=== PATIENT | female | born 1970 | race Hispanic/Latino ===

== ENCOUNTER 2020-12-18 19:05 | Inpatient (IN) | payer SELFPAY ==
[~2020-12-18 19:05] MED LIST: Iopamidol-370 76% 500 ML 1 ML ONE
[2020-12-18] MEDS ORDERED: Acetaminophen 500 MG TAB ONE (19:23)
[2020-12-18 20:03] LABS: Hemoglobin 13.7 g/dL (12.0-16.0); Mean Corpuscular HGB CONC 33.8 g/dL (32.0-36.0); Mean Corpuscular Hemoglobin 28.2 pg (27.0-31.0); Mean Corpuscular Volume 83.4 fL (78.0-98.0); RBC Distribution Width 13.5 % (11.5-14.5); Red Blood Cell (RBC) Count 4.85 mill/uL (4.20-5.40); White Blood Cell (WBC) Count 5.1 thou/uL (4.8-10.8)
[2020-12-18 20:22] LABS: ALT (SGPT) 44 U/L (8-55); AST (SGOT) 67 U/L (5-34); Albumin 4.1 g/dL (3.5-5.0); Alkaline Phosphatase 108 U/L (40-110); Anion Gap 17 mmol/L (10-20); BUN (Urea Nitrogen) 10 mg/dL (7.0-18.7); Bilirubin, Total 0.8 mg/dL (0.2-1.2); CK (CPK) 121 U/L (29-168); Calc. Creatinine Clearance 0 mL/min (70-130); Calcium 8.2 mg/dL (7.8-10.44); Carbon Dioxide 22 mmol/L (22-29); Chloride 102 mmol/L (98-107); Globulin 3.8 g/dL (2.4-3.5); Glucose 114 mg/dL (70-105); Potassium 4.2 mmol/L (3.5-5.1); Protein, Total 7.9 g/dL (6.0-8.3); Sodium 137 mmol/L (136-145)
[2020-12-18 20:23] LABS: Band 39 % (5-11); Lymphocytes 23 % (21-51); MDiff Complete? YES; Mean Platelet Volume 7.9 fL (7.4-10.4); Monocytes 4 % (0-10); Neutrophil 30 % (42-75); Platelet Count 211 thou/uL (130-400); Platelet Morphology Comment Appears Adequate; RBC Morphology Normal; Reactive Lymphocytes 4 % (0-10)
[2020-12-18] MEDS ORDERED: Dexamethasone 10 MG/ML VIAL ONE (21:03)
[2020-12-18] MEDS ORDERED: Azithromycin 500 MG VIAL ONE (21:03)
[2020-12-18] MEDS ORDERED: Aspirin Chewable 81 MG TAB ONE (21:03)
[2020-12-18] MEDS ORDERED: cefTRIAXone\\ROCEPHIN 1 GM VIAL ONE (21:03)
[2020-12-18] MEDS ORDERED: Enoxaparin Sodium 100 MG/ML SYRINGE ONE (21:03)
[2020-12-18 22:06] LABS: SARS-CoV-2 NAA Rapid Test DETECTED (NotDetected)
[2020-12-18] MEDS ORDERED: Ondansetron ODT 4 MG TAB SL PRN (23:30)
[2020-12-18] MEDS ORDERED: Ondansetron PF 4 MG/2 ML Vial IVP PRN (23:30)
[2020-12-18] MEDS ORDERED: Sodium Chloride 0.9% 1,000 ML IV SCH (23:30)
[2020-12-18 23:39] VITALS: BMI 35.3
[2020-12-19] MEDS: Cholecalciferol (Vitamin D3) 400 UNITS TAB PO SCH (08:29)
[2020-12-19] MEDS: Zinc Sulfate 220 MG CAP PO SCH (08:29)
[2020-12-19] MEDS: Ascorbic Acid 500 mg Chewable Tablet PO SCH (08:29)
[2020-12-19] MEDS ORDERED: Dexamethasone 4 mg/ml Vial SLOW IVP SCH ×3 (09:00→10:00)
[2020-12-19] MEDS ORDERED: Aspirin 325 MG TAB PO SCH (09:00)
[2020-12-19] MEDS: Sodium Chloride 0.9% 1,000 ML IV SCH (10:52)
[2020-12-19] MEDS: Guaifenesin DM 100-10/5 ML UDCUP PO PRN ×3 (11:18→20:10)
[2020-12-19] MEDS: cefTRIAXone\\ROCEPHIN 1 GM in Sodium Chloride 0.9% 100 ML IVPB SCH (20:09)
[2020-12-19] MEDS: Azithromycin 500 MG in Sodium Chloride 0.9% 250 ML 250 ML IVPB SCH (21:50)
[2020-12-20] MEDS: Guaifenesin DM 100-10/5 ML UDCUP PO PRN ×3 (00:17→20:52)
[2020-12-20] MEDS: Acetaminophen 325 MG TAB PO PRN ×2 (00:18→08:27)
[2020-12-20] MEDS: Sodium Chloride 0.9% 1,000 ML IV SCH (00:18)
[2020-12-20 06:08] LABS: #Lymphocytes 1.9 thou/uL (1.20-3.40); #Monocytes 0.4 thou/uL (0.11-0.59); #Neutrophils 8.2 thou/uL (1.40-6.50); %Basophils 0.3 % (0.0-1.0); %Eosinophils 0.1 % (0.0-10.0); %Lymphocytes 17.5 % (21.0-51.0); %Monocytes 3.8 % (0.0-10.0); %Neutrophils 78.3 % (42.0-75.0); Hemoglobin 11.8 g/dL (12.0-16.0); Mean Corpuscular HGB CONC 32.7 g/dL (32.0-36.0); Mean Corpuscular Hemoglobin 27.5 pg (27.0-31.0); Mean Corpuscular Volume 84.1 fL (78.0-98.0); Platelet Count 296 thou/uL (130-400); RBC Distribution Width 13.3 % (11.5-14.5); White Blood Cell (WBC) Count 10.5 thou/uL (4.8-10.8)
[2020-12-20 07:43] LABS: Anion Gap 14 mmol/L (10-20); BUN (Urea Nitrogen) 10 mg/dL (7.0-18.7); Calc. Creatinine Clearance 162 mL/min (70-130); Calcium 8.1 mg/dL (7.8-10.44); Carbon Dioxide 18 mmol/L (22-29); Chloride 109 mmol/L (98-107); Glucose 109 mg/dL (70-105); Potassium 3.9 mmol/L (3.5-5.1); Sodium 137 mmol/L (136-145)
[2020-12-20] MEDS: Ascorbic Acid 500 mg Chewable Tablet PO SCH (08:27)
[2020-12-20] MEDS: Zinc Sulfate 220 MG CAP PO SCH (08:27)
[2020-12-20] MEDS: Cholecalciferol (Vitamin D3) 400 UNITS TAB PO SCH (08:27)
[2020-12-20] MEDS: Dexamethasone 4 mg/ml Vial SLOW IVP SCH (08:27)
[2020-12-20] MEDS ORDERED: Ibuprofen 800 MG TAB PO PRN (09:21)
[2020-12-20] MEDS ORDERED: REMDESIVIR (EUA) 200 MG in Sodium Chloride 0.9% 250 ML 210 ML IV SCH (11:00)
[2020-12-20] MEDS: Azithromycin 500 MG in Sodium Chloride 0.9% 250 ML 250 ML IVPB SCH (20:36)
[2020-12-20] MEDS: Enoxaparin Sodium 40 MG/0.4 ML SYRINGE SC SCH (20:37)
[2020-12-20] MEDS: cefTRIAXone\\ROCEPHIN 1 GM in Sodium Chloride 0.9% 100 ML IVPB SCH (23:00)
[2020-12-21] MEDS: Acetaminophen 325 MG TAB PO PRN (01:13)
[2020-12-21] MEDS: Guaifenesin DM 100-10/5 ML UDCUP PO PRN (04:36)
[2020-12-21 07:12] LABS: #Lymphocytes 1.6 thou/uL (1.20-3.40); #Monocytes 0.3 thou/uL (0.11-0.59); #Neutrophils 5.4 thou/uL (1.40-6.50); %Basophils 0.3 % (0.0-1.0); %Lymphocytes 22.2 % (21.0-51.0); %Monocytes 4.4 % (0.0-10.0); %Neutrophils 73.1 % (42.0-75.0); Hemoglobin 11.4 g/dL (12.0-16.0); Mean Corpuscular Hemoglobin 27.8 pg (27.0-31.0); Mean Corpuscular Volume 84.4 fL (78.0-98.0); Mean Platelet Volume 7.1 fL (7.4-10.4); Platelet Count 277 thou/uL (130-400); RBC Distribution Width 13.4 % (11.5-14.5); Red Blood Cell (RBC) Count 4.11 mill/uL (4.20-5.40); White Blood Cell (WBC) Count 7.4 thou/uL (4.8-10.8)
[2020-12-21 07:24] LABS: ALT (SGPT) 26 U/L (8-55); AST (SGOT) 36 U/L (5-34); Albumin 3.1 g/dL (3.5-5.0); Alkaline Phosphatase 66 U/L (40-110); Anion Gap 12 mmol/L (10-20); BUN (Urea Nitrogen) 10 mg/dL (7.0-18.7); Bilirubin, Total 0.5 mg/dL (0.2-1.2); CRP (Inflammatory) 14.37 mg/dL (= or < 0.5); Calc. Creatinine Clearance 192 mL/min (70-130); Calcium 7.8 mg/dL (7.8-10.44); Carbon Dioxide 19 mmol/L (22-29); Chloride 110 mmol/L (98-107); Globulin 3.2 g/dL (2.4-3.5); Glucose 91 mg/dL (70-105); Potassium 3.1 mmol/L (3.5-5.1); Protein, Total 6.3 g/dL (6.0-8.3); Sodium 138 mmol/L (136-145)
[2020-12-21] MEDS: Dexamethasone 4 mg/ml Vial SLOW IVP SCH ×2 (08:39→19:52)
[2020-12-21] MEDS: Ascorbic Acid 500 mg Chewable Tablet PO SCH ×2 (08:39→19:52)
[2020-12-21] MEDS: Enoxaparin Sodium 40 MG/0.4 ML SYRINGE SC SCH ×2 (08:39→19:57)
[2020-12-21] MEDS: Zinc Sulfate 220 MG CAP PO SCH (08:39)
[2020-12-21] MEDS: Cholecalciferol (Vitamin D3) 400 UNITS TAB PO SCH (08:39)
[2020-12-21] MEDS: REMDESIVIR (EUA) 100 MG in Sodium Chloride 0.9% 250 ML 230 ML IV SCH (11:43)
[2020-12-21] MEDS ORDERED: Potassium Chloride 20 MEQ TAB PO SCH (13:00)
[2020-12-21] MEDS ORDERED: Albuterol Sulfate 2.5 mg/3 ml Neb NEB PRN (13:12)
[2020-12-21] MEDS: Potassium Chloride 20 MEQ TAB PO SCH (16:58)
[2020-12-21] MEDS: cefTRIAXone\\ROCEPHIN 1 GM in Sodium Chloride 0.9% 100 ML IVPB SCH (19:56)
[2020-12-21] MEDS: Azithromycin 500 MG in Sodium Chloride 0.9% 250 ML 250 ML IVPB SCH (21:23)
[2020-12-22] MEDS: Enoxaparin Sodium 40 MG/0.4 ML SYRINGE SC SCH ×2 (08:29→21:23)
[2020-12-22] MEDS: Ascorbic Acid 500 mg Chewable Tablet PO SCH ×2 (08:29→21:23)
[2020-12-22] MEDS: Zinc Sulfate 220 MG CAP PO SCH (08:29)
[2020-12-22] MEDS: Potassium Chloride 20 MEQ TAB PO SCH ×2 (08:29→17:34)
[2020-12-22] MEDS: Cholecalciferol (Vitamin D3) 400 UNITS TAB PO SCH (08:29)
[2020-12-22] MEDS: Dexamethasone 4 mg/ml Vial SLOW IVP SCH ×2 (08:30→21:20)
[2020-12-22] MEDS: REMDESIVIR (EUA) 100 MG in Sodium Chloride 0.9% 250 ML 230 ML IV SCH (12:04)
[2020-12-22] MEDS: cefTRIAXone\\ROCEPHIN 1 GM in Sodium Chloride 0.9% 100 ML IVPB SCH (21:22)
[2020-12-22] MEDS: Azithromycin 500 MG in Sodium Chloride 0.9% 250 ML 250 ML IVPB SCH (21:22)
[2020-12-23 06:08] LABS: Anion Gap 14 mmol/L (10-20); BUN (Urea Nitrogen) 18 mg/dL (7.0-18.7); Calc. Creatinine Clearance 171 mL/min (70-130); Calcium 8.6 mg/dL (7.8-10.44); Carbon Dioxide 19 mmol/L (22-29); Chloride 111 mmol/L (98-107); Glucose 136 mg/dL (70-105); Potassium 4.2 mmol/L (3.5-5.1); Sodium 140 mmol/L (136-145)
[2020-12-23] MEDS: Potassium Chloride 20 MEQ TAB PO SCH ×2 (09:32→17:00)
[2020-12-23] MEDS: Zinc Sulfate 220 MG CAP PO SCH (09:32)
[2020-12-23] MEDS: Ascorbic Acid 500 mg Chewable Tablet PO SCH ×2 (09:32→19:52)
[2020-12-23] MEDS: Enoxaparin Sodium 40 MG/0.4 ML SYRINGE SC SCH ×2 (09:33→19:52)
[2020-12-23] MEDS: Cholecalciferol (Vitamin D3) 400 UNITS TAB PO SCH (09:33)
[2020-12-23] MEDS: Dexamethasone 4 mg/ml Vial SLOW IVP SCH ×2 (09:33→19:53)
[2020-12-23] MEDS: Guaifenesin DM 100-10/5 ML UDCUP PO PRN ×3 (09:33→20:53)
[2020-12-23] MEDS: REMDESIVIR (EUA) 100 MG in Sodium Chloride 0.9% 250 ML 230 ML IV SCH (11:37)
[2020-12-23] MEDS: cefTRIAXone\\ROCEPHIN 1 GM in Sodium Chloride 0.9% 100 ML IVPB SCH (19:52)
[2020-12-23] MEDS: Acetaminophen 325 MG TAB PO PRN (20:53)
[2020-12-23] MEDS: Azithromycin 500 MG in Sodium Chloride 0.9% 250 ML 250 ML IVPB SCH (20:53)
[2020-12-24] MEDS: Acetaminophen 325 MG TAB PO PRN (05:43)
[2020-12-24] MEDS: Guaifenesin DM 100-10/5 ML UDCUP PO PRN ×3 (05:43→16:36)
[2020-12-24] MEDS: Potassium Chloride 20 MEQ TAB PO SCH (09:10)
[2020-12-24] MEDS: Cholecalciferol (Vitamin D3) 400 UNITS TAB PO SCH (09:10)
[2020-12-24] MEDS: Ascorbic Acid 500 mg Chewable Tablet PO SCH ×2 (09:10→21:13)
[2020-12-24] MEDS: Enoxaparin Sodium 40 MG/0.4 ML SYRINGE SC SCH ×2 (09:11→21:13)
[2020-12-24] MEDS: Dexamethasone 4 mg/ml Vial SLOW IVP SCH ×2 (09:14→21:20)
[2020-12-24] MEDS: Zinc Sulfate 220 MG CAP PO SCH (09:29)
[2020-12-24] MEDS: REMDESIVIR (EUA) 100 MG in Sodium Chloride 0.9% 250 ML 230 ML IV SCH (12:16)
[2020-12-24] MEDS ORDERED: Ivermectin 3 MG TAB PO SCH (15:00)
[2020-12-24] MEDS: cefTRIAXone\\ROCEPHIN 1 GM in Sodium Chloride 0.9% 100 ML IVPB SCH (21:13)
[2020-12-24] MEDS: Azithromycin 500 MG in Sodium Chloride 0.9% 250 ML 250 ML IVPB SCH (21:13)
[2020-12-25] MEDS: Guaifenesin DM 100-10/5 ML UDCUP PO PRN (05:10)
[2020-12-25] MEDS ORDERED: Ivermectin 3 MG TAB PO SCH (09:00)
[2020-12-25] MEDS: Dexamethasone 4 mg/ml Vial SLOW IVP SCH (09:06)
[2020-12-25] MEDS: Cholecalciferol (Vitamin D3) 400 UNITS TAB PO SCH (09:06)
[2020-12-25] MEDS: Enoxaparin Sodium 40 MG/0.4 ML SYRINGE SC SCH (09:06)
[2020-12-25] MEDS: Zinc Sulfate 220 MG CAP PO SCH (09:06)
[2020-12-25] MEDS: Ascorbic Acid 500 mg Chewable Tablet PO SCH (09:06)
[2020-12-25 15:55] VITALS: BP 102/68; TEMP 97.7
== END 2020-12-25 16:25 | disposition home or self-care (01) | DRG 177 ==
LOC: ERS 19:05 → T4-B 21:52
PROVIDERS: ADMIT Student in an Organized Health Care Education/Training Program; ATTEND Family Medicine
PROC: 8E0ZXY6 Isolation (ICD-10-PCS; 2020-12-19)
PROC: XW033E5 Introduction of Remdesivir Anti-infective into Peripheral Vein, Percutaneous Approach, New Technology Group 5 (ICD-10-PCS; principal; 2020-12-20)
DX: U07.1 COVID-19 (principal); J12.82 Pneumonia due to coronavirus disease 2019; J96.01 Acute respiratory failure with hypoxia; G89.29 Other chronic pain; M54.9 Dorsalgia, unspecified; E66.01 Morbid (severe) obesity due to excess calories; E87.6 Hypokalemia; I95.9 Hypotension, unspecified; Z79.1 Long term (current) use of non-steroidal anti-inflammatories (NSAID); Z68.35 Body mass index [BMI] 35.0-35.9, adult
CPT/HCPCS: 0240U; 36415; 71045; 71275; 80048; 80053; 82550; 82728; 83605; 84484; 85025; 85379; 86140; 87040; 93005; 94760; 96365; 96366; 96367; 96372; 96375; J0456; J0696; J1100; J1650; J3490; J7050; Q9967

== ENCOUNTER 2021-02-07 16:13 | Outpatient (CLI) | payer OTHER | END 2021-02-07 16:14 | disposition home or self-care (01) | LOC: BICRAD 16:13 | PROVIDERS: ATTEND Family Medicine | DX: Z87.01 Personal history of pneumonia (recurrent) (principal); Z86.16 Personal history of COVID-19; R91.8 Other nonspecific abnormal finding of lung field | CPT/HCPCS: 71046 ==

== ENCOUNTER 2021-05-01 13:10 | Outpatient (CLI) | payer OTHER | END 2021-05-01 13:11 | disposition home or self-care (01) | LOC: BICRAD 13:10 | PROVIDERS: ATTEND Family Medicine | DX: Z09 Encounter for follow-up examination after completed treatment for conditions other than malignant neoplasm (principal); Z86.16 Personal history of COVID-19; Z87.01 Personal history of pneumonia (recurrent) | CPT/HCPCS: 71046 ==